=== PATIENT | male | born 1980 | race African-American/Black ===

== ENCOUNTER 2017-01-11 22:47 | Emergency (ER) | payer SELFPAY ==
--- NOTE | 2017-01-17 07:55 | ER ---
ADMIT: 01/11/2017 RM/LOC: [facility] MR#: [id number] [id number] [place], [place] [address] SHERRI HANDLEY [address] [address] Emergency Room Report SEX: M AGE: 36 : 1980 DATE: 01/11/2017 CHIEF COMPLAINT: High blood pressure and blood in urine. HISTORY OF PRESENT ILLNESS: The patient is a 36-year-old male, who apparently has had a diagnosis of hypertension in the past and was on atenolol before but has not been taking any medications for blood pressure for quite some time. He does not have a regular physician in [place]. He denies any chest pain, shortness of breath, abdominal pain, headache, numbness, tingling, weakness in any extremity. He states that the main reason he is here is he had a little bit of blood in his urine a couple of days ago and he felt his blood pressure was probably high even though he did not check it. PAST MEDICAL HISTORY: Hypertension. MEDICATIONS: None. ALLERGIES: NONE. SOCIAL HISTORY: Denies drug or alcohol use. PHYSICAL EXAMINATION: VITAL SIGNS: Blood pressure is 242/152, heart rate 83, respirations 18, temp 98.8, sats 96% on room air. See T-sheet for remainder of physical exam. LABORATORY DATA: Chemistries show a potassium of 3.2, BUN of 28, and creatinine of 2.7. Urinalysis shows 2+ blood, 3+ protein. No signs of infection. CBC shows a white count of 12.6 and platelets of 119, otherwise unremarkable. EMERGENCY DEPARTMENT COURSE: The patient really had no symptoms when I examined the patient in the Emergency Department. He was given clonidine 0.1 mg p.o. and his blood pressure improved to 180/120. They decided also start the patient on amlodipine. He was given his first dose in the Emergency Department. I had a discussion with the patient about my concern of his uncontrolled blood pressure and with likely some kidney damage and renal insufficiency secondary to his high blood pressure. I told him I plan on ADMIT: 01/11/2017 RM/LOC: [facility] MR#: [id number] [address] [address] SHERRI HANDLEY [address] [place] [address] Emergency Room Report SEX: M AGE: 36 : 1980 starting him on an antihypertensive medication here which is to be taken daily and then he needs to follow up early next week with Dr. Roger's office to see how his kidney function is. He is told he should drink plenty of water, and if he has any other concerning symptoms, he can return to our Emergency Department before that. The patient will be placed on amlodipine 5 mg p.o. daily with instructions to call Dr. Roger's office and follow up early next week. DIAGNOSES: 1. Hypertensive urgency. 2. Renal insufficiency. 3. Hypokalemia. Renny Núñez MD/ leninl JOB #: [id number] CC: Renny Núñez MD, Attending Physician Davy Roger MD, Family Physician
[2017-01-25] MEDS ORDERED: APRESOLINE DPS100 MG PO (13:29)
[2017-01-25] MEDS ORDERED: NORVASC DPS10 MG PO (13:29)
[2017-01-25] MEDS ORDERED: CATAPRES-DPS0.2 MG PO (13:29)
[2017-01-25] MEDS ORDERED: LIPITOR DPS10 MG PO (13:30)
[2017-01-25] MEDS ORDERED: CARVEDILOL25 MG PO (13:30)
[2017-01-25] MEDS ORDERED: HYDRODIURIL-DPS50 MG PO (13:30)
[2017-01-25] MEDS ORDERED: [UNRECOGNIZED DRUG - OTHER] PO (13:31)
== END 2017-01-12 03:10 | disposition home or self-care (01) ==
LOC: ER 22:47
DX: I16.0 Hypertensive urgency (principal); N28.9 Disorder of kidney and ureter, unspecified; E87.6 Hypokalemia

== ENCOUNTER 2017-01-18 23:11 | Inpatient (IN) | payer SELFPAY ==
[~2017-01-18] VITALS: Ht 189.2 cm; Wt 140.7 kg
--- NOTE | ~2017-01-18 | ECH ---
Transthoracic Echocardiography Report (TTE) Demographics Patient Name SHERRI HANDLEY Date of Study 01/19/2017 Patient Number [id number] Visit Number [id number] Date of 1980 Room Number 426 Accession Number [id number] Gender Male Age 36 year(s) Referring Karime Desir MD Veterinary Milk Specialist Shannan Carballo [facility] Physician Luis Jefferson Physician Interpreting Karime Desir MD Graphics Coordinator Physician Supervising Ordering Physician Luis Jefferson MD/P Nurse Stress Financial Sales Advisor Conclusions Summary Technically adequate exam. The estimated left ventricular ejection fraction is 60-65%. Severe left ventricular hypertrophy. Diastolic assessment reveals Grade I diastolic dysfunction. There is mild aortic regurgitation by color Doppler. Mild mitral regurgitation by color Doppler. Procedure Type of Study TTE procedure:Echo Complete SF. Procedure Date Date: 01/19/2017 Start: 10:07 AM Technical Quality: Fair due to body habitus. Indications:Hypertension. Appropriate Use Criteria: 9 Height: 75 inches Weight: 308 pounds BSA: 2.64 m Rhythm: Within normal limits HR: 65 bpm BP: 159/103 mmHg M-Mode/2D Measurements LV Diastolic Dimension: 5.24 cm LV Systolic Dimension: 3.09 cm LV Septum Diastolic: 2.3 cm LV PW Diastolic: 1.97 cm AO Root Dimension: 3.13 cm Cardiac Output: 4.48 l/min LA Dimension: 4.14 cm Cardiac Index: 1.7 l/min*m RV Diastolic Dimension: 2.75 cm LA volume index: 30 ml/m LVOT: 2.5 cm LVOT VTI: 14.05 cm RV Base: 4 cm LV Stroke volume: 68.93 ml RV Mid: 2.8 cm LV Stroke volume index: 26.11 ml/m RV Length: 7.4 cm TAPSE: 2.4 cm Doppler Measurements AV Peak Velocity: 1.37 m/s MV Peak E-Wave: 0.59 m/s AV Peak Gradient: 7.51 mmHg MV Peak A-Wave: 0.61 m/s AV Mean Gradient: 4.45 mmHg MV E/A Ratio: 0.97 LVOT Peak Velocity: 0.89 m/s MV P1/2t: 89.7 msec AV Area (Continuity):2.8 cm MV Deceleration Time: 319.1 msec MV Area (PHT): 2.45 cm PV Peak Velocity: 1 m/s PV Peak Gradient: 3.98 mmHg RA Area: 20.93 cm Findings Left Ventricle The left ventricle is normal in size . Severe left ventricular hypertrophy. Diastolic assessment reveals Grade I diastolic dysfunction. Right Ventricle Normal right ventricle structure and function. Left Atrium Normal left atrial size. Right Atrium The right atrium is mildly dilated. Mitral Valve Normal mitral valve structure and function. Mild mitral regurgitation by color Doppler. Aortic Valve Normal aortic valve structure and function. There is mild aortic regurgitation by color Doppler. Tricuspid Valve Normal tricuspid valve structure and function. Pulmonic Valve Normal pulmonic valve structure and function. Pericardial Effusion No evidence of pericardial effusion. Miscellaneous Visualized portions of the aortic root and ascending aorta appear normal in size. Pleural Effusion No evidence of pleural effusion. Contractility Score LV regional wall motion:(0-Non visualized 1-Normal 2-Hypokinesis 3-Akinesis 4-Dyskinesis 5-Aneurysm) Signature
--- NOTE | 2017-01-19 19:22 | ER ---
ADMIT: 01/19/2017 RM/LOC: 426 [facility] MR#: [id number] [address] [place], [place] [address] SHERRI HANDLEY [address] [address] Emergency Room Report SEX: M AGE: 36 : 1980 DATE: 01/18/2017 HISTORY OF PRESENT ILLNESS: The patient is a 36-year-old male with a past medical history of hypertension, who has already been on atenolol, but recently did not take any medications, last week the patient came to ER with chief complaint of blood in the urine and they also noticed that the patient has high blood pressure, and the patient was discharged home with amlodipine, the patient came today in the ER with chief complaint of left arm pain without any chest pain or shortness of breath, the pain started 3 hours ago and is dull, the patient denies any diaphoresis. The patient denies any abdominal pain. In the ER, the patient had systolic blood pressure of 240s with diastolic blood pressure of 125, EKG showed inverted T on the lateral leads and also biphasic T in the anteroseptal leads. Cardiac enzyme was mildly elevated to 0.043. Chest x-ray was noncontributory. In the ER, the patient received nitroglycerin sublingual, which did not change the pain in the left upper extremity and also did not change the blood pressure that much. The patient received 2 doses of clonidine 2.1 mg, which decreased the blood pressure systolic to 170s. The rest of the lab work was noncontributory. The patient denies any drug use. The patient also has elevated creatinine level chronically to 2.8 with a BUN of 21. PHYSICAL EXAMINATION: Preliminary physical examination. HEAD AND NECK: Noncontributory. There is no bruit on the neck, and there are no murmurs on the neck. Trachea is midline. LUNGS: Clear bilaterally, normal. HEART: Sounds without any murmur or gallops. ABDOMEN: Soft, without any pulsatile mass. NEUROLOGIC: Motor and sensory and the rest of the neural exam was grossly normal. The rest of physical exam is grossly normal. The patient was admitted to the Family Medicine for further followups and treatments of left arm pain, rule out acute coronary syndrome, hypertensive urgency versus emergency, chronic kidney disease. Deepak Cisneros MD/ dipti JOB #: [id number] CC: Ronny Smith MD, Attending Physician Ronny Smith MD, Family Physician
[2017-01-25] MEDS ORDERED: APRESOLINE DPS100 MG PO (13:29)
[2017-01-25] MEDS ORDERED: NORVASC DPS10 MG PO (13:29)
[2017-01-25] MEDS ORDERED: CATAPRES-DPS0.2 MG PO (13:29)
[2017-01-25] MEDS ORDERED: LIPITOR DPS10 MG PO (13:30)
[2017-01-25] MEDS ORDERED: HYDRODIURIL-DPS50 MG PO (13:30)
[2017-01-25] MEDS ORDERED: CARVEDILOL25 MG PO (13:30)
[2017-01-25] MEDS ORDERED: [UNRECOGNIZED DRUG - OTHER] PO (13:31)
--- NOTE | 2017-01-29 19:48 | HP ---
ADMIT: 01/19/2017 RM/LOC: 426 [facility] MR#: [id number] [address] [place], [place] [address] SHERRI HANDLEY [address] [address] History and Physical SEX: M AGE: 36 : 1980 DATE OF SERVICE: CHIEF COMPLAINT: Left arm pain. REASON FOR ADMISSION: Hypertension urgency and acute renal failure. HISTORY OF PRESENT ILLNESS: The patient is a pleasant male, who presented to the ER with left arm pain starting yesterday. He described the pain as dull in nature, it had been lasting all day. He also states he has had some blurry vision over the past month but denies headaches, chest pain, shortness of breath, or palpitations. He was recently diagnosed with hypertension 1 week ago in the ER, and was started on amlodipine. Patient has been taking his amlodipine daily. He states he is, however, supposed to have followup appointment and has not yet been to that. The patient denies any other symptoms. When he got in the ER, patient was noted to have a blood pressure of 244/160, pulse is 85, respiratory rate 18, temp is 97.4, so the patient was given clonidine which did decrease his blood pressure. Other workup in the ER showed a slightly elevated white blood cell count of 12.2, hemoglobin slightly low at 13.4, and platelets are 191. CMP; sodium is 138, potassium is low at 3.2, chloride was 98, CO2 is 30, BUN is 21, creatinine 2.8, glucose is 101 and 9.5 was his calcium. He also had an EKG in the ER that showed sinus rhythm, but did have some possible left atrial enlargement and some LVH, also meeting LVH criteria. There is also some T-wave inversion in the lateral leads. The patient's cardiac enzymes, troponin was done and it was slightly elevated at 0.043. So, the patient was admitted for hypertension urgency, we are trending his EKGs and his cardiac enzymes. Upon my read, does appear to still have some T-wave inversion in V3 through V6 and is still meeting criteria for LVH but is sinus rhythm, otherwise. PAST MEDICAL HISTORY: Includes hypertension, he says he has been healthy otherwise. ALLERGIES: NONE. FAMILY HISTORY: Hypertension. MEDICATIONS: Just the amlodipine. SOCIAL HISTORY: He is a father and does not smoke. Denies any drug use. He does drink alcohol 2-3 times a month, 1-2 drinks when he does drink. SURGICAL HISTORY: None. PHYSICAL EXAMINATION: VITAL SIGNS: At time of my exam blood pressure has improved slightly to 149/99, temp is 96.9, pulse is 65, respiratory rate 14, and he is 95% on room air. GENERAL: No acute distress. He is alert and oriented x3. Very pleasant, but he does admit he is fairly tired and has not gotten much sleep over the past night. ADMIT: 01/19/2017 RM/LOC: 426 [facility] MR#: [id number] [address] [address] [place] [address] History and Physical SEX: M AGE: 36 : 1980 HEENT: Normocephalic, atraumatic. Moist mucous membranes. Extraocular muscles are intact. NECK: Supple. Nontender. HEART: Regular rate and rhythm. No murmur. LUNGS: Clear to auscultation bilaterally. Normal effort. No wheezing was appreciated. ABDOMEN: Soft, positive bowel sounds. Nontender. The patient is overweight, however. EXTREMITIES: Pulses are 2+ bilaterally in his radial pulses as well as his dorsalis pedis. No edema is appreciated in his lower extremities. He has normal range of motion of musculoskeletal. Pain does not really radiate from that left. Biceps area is nontender. NEURO: Cranial nerves II through XII are grossly intact. ASSESSMENT/PLAN: 1. Hypertension urgency. We will continue blood pressure monitoring. We will continue his amlodipine. 2. Acute renal failure. His creatinine is 3.8, we will recheck BMP later this afternoon and give patient IV fluids. 3. Elevated troponin, we will trend cardiac enzymes and EKGs at this time and do some further monitoring of that. The patient is otherwise stable at this time. Florence Waldron MD Resident / Ronny Smith MD / modl JOB #: [id number] CC: Ronny Smith, Attending Physician Ronny Smith, Family Physician
--- NOTE | 2017-01-30 10:43 | CO ---
ADMIT: 01/19/2017 RM/LOC: 426 [facility] MR#: [id number] [address] [place], [place] [address] SHERRI HANDLEY [address] [address] Consultation SEX: M AGE: 36 : 1980 DATE OF CONSULTATION: 01/21/2017 ATTENDING PHYSICIAN: Ronny Smith CONSULTING PHYSICIAN: Antonette Fischer MD REASON FOR CONSULTATION: Severe hypertension. HISTORY OF PRESENT ILLNESS: The patient is a pleasant 36-year-old male, who was admitted to the hospital 2 days ago with hypertensive urgency. He was noted to have a serum creatinine of 2.8 on admission. His blood pressure is now better on multiple antihypertensive agents, but his creatinine has been in the mid 2 range. He had some left arm pain as well as blurry vision upon admission and these complaints have resolved. He states that he was put on a medication atenolol 5 years ago by a physician in [place], but he has not been taking his medications. I reviewed his diet with him and he has a sodium rich diet. He is not very active physically either. He denies any ongoing urinary complaints, although he notes that he had an episode of hematuria not too long ago. Denies any ongoing chest pain or dyspnea. Denies any dizziness or lightheadedness. REVIEW OF SYSTEMS: A complete review of systems is negative in detail except as mentioned in history of present illness above. PAST MEDICAL HISTORY: Hypertension. ALLERGIES: NO KNOWN DRUG ALLERGIES. MEDICATIONS: He was not taking any medications prior to admission. His inpatient medications were reviewed in the chart. FAMILY HISTORY: Hypertension and heart disease runs in his family. Denies any history of chronic kidney disease or renal replacement therapy. SOCIAL HISTORY: He lives here in [place] and has lived here for about last 4 or 5 years. He works as a cook at [employer]. He does not smoke. He drinks alcohol occasionally. Denies any recreational drug use. PHYSICAL EXAMINATION: VITAL SIGNS: Temperature 97.4 Fahrenheit, pulse 70, and blood pressure 150/93. GENERAL: He is comfortable. HEENT: Head is nontraumatic and normocephalic. Extraocular movements are intact. CHEST: Clear to auscultation. CVS: Regular. Normal S1 and S2. No rubs, murmurs, or gallops. ABDOMEN: Soft. EXTREMITIES: No edema. NEUROLOGIC: Alert, awake, and oriented x3. PSYCHIATRIC: Affect and memory within normal limits. ADMIT: 01/19/2017 RM/LOC: 426 [facility] MR#: [id number] [id number] [place], [place] [id number] [address] [place] [address] Consultation SEX: M AGE: 36 : 1980 MUSCULOSKELETAL: Major joints within normal. Range of motion within normal limits. LABORATORY DATA: Reviewed. Trend of serum creatinine outlined in the HPI above. His sodium was 139, potassium 3.4, and CO2 25. His hemoglobin was 12.5. He had an echocardiogram two days ago that showed left ventricular EF of 60% to 65% with severe LVH. His urinalysis showed 3+ protein, 2+ blood and negative leukocyte esterase. ASSESSMENT AND PLAN: 1. Severe hypertension. 2. Chronic kidney disease stage 3/4. 3. He has end-organ damage from hypertension, which has manifested in the form of left ventricular hypertrophy as well as proteinuric chronic kidney disease. 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 I will stop his normal saline for the time being. I have counseled him on limiting his dietary sodium intake, regular aerobic exercise and weight loss as nonpharmacologic measures to control blood pressure. I have noted Cardiology orders for spironolactone and I will substitute that with amiloride instead in case we need to pursue secondary hypertension workup with an angiotensin levels. Thank you for this consultation. Please do not hesitate to contact with any questions. Antonette Fischer MD/ dipti JOB #: [id number] CC: Ronny Smith, Attending Physician Ronny Smith, Family Physician
--- NOTE | 2017-01-31 15:33 | CO ---
ADMIT: 01/19/2017 RM/LOC: 426 [facility] [place] MR#: [id number] [address] [place], [place] [address] SHERRI HANDLEY [address] [address] Consultation SEX: M AGE: 36 : 1980 DATE OF CONSULTATION: 01/19/2017 ATTENDING PHYSICIAN: Ronny Smith CONSULTING PHYSICIAN: Janet Schaffer MD REASON FOR CONSULT: Hypertension, elevated troponin. Ximena Palm RN, scribing for Dr. Thang Schaffer. HISTORY OF PRESENT ILLNESS: Sherri is a pleasant 36-year-old gentleman, I have been asked in Cardiology consultation by Dr. Ronny Smith for mildly elevated troponin with hypertension. Sherri has no prior history of coronary artery disease. He had a maternal grandmother who from myocardial infarction at a young age. He is unaware of his father's family history. His mom at the age of 34 from HIV. He has history of high blood pressure and hyperlipidemia. He presented to [facility] emergency room a week ago with hematuria, however, he was noted to have blood pressure over 250 systolic at that time per their notes. He was started on Norvasc 5 mg and was told to follow up with Family Practice, which he had not been able to do as of yet. 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 He stated that yesterday he was having left arm pain that he describes as tension and bruising type feeling. He had never had this before. He denies any chest pain. He does note over the last few weeks he has had increasing shortness of breath. He denies any orthopnea or peripheral, edema but does have symptoms that sound like sleep apnea. He came to the emergency room, initial troponin was very mildly elevated at 0.04, however, his renal function was abnormal with a creatinine of 2.8, and it sounds like his blood pressures were over 200 at that time. He was given IV hydralazine, and placed on HydroDIURIL with Norvasc at 30 mg which have not been given yet, I believe, but the IV medication has dropped his blood pressure down to 159/103. He reports his symptoms have improved. His second set of cardiac troponin is negative. CK and MB are elevated with a CK of 1125, MB of 4.3. His potassium was a little low and being replaced by primary at 3.2. Currently, he denies any discomfort. PAST MEDICAL HISTORY: 1. Hypertension. 2. Hyperlipidemia. 3. Recent hematuria. ALLERGIES: NO KNOWN MEDICATION ALLERGIES. MEDICATIONS: Currently ordered medications include: 1. Aspirin 162 daily. 2. HydroDIURIL 25 daily. 3. Norvasc 30 mg daily. 4. Potassium chloride 10 mEq IV q.8 hours. FAMILY HISTORY: Father side, unknown. Mom of HIV at 34. Maternal ADMIT: 01/19/2017 RM/LOC: 426 [facility] MR#: [id number] [address] [place], [place] [id number] SHERRI HANDLEY [address] [place] [address] Consultation SEX: M AGE: 36 : 1980 grandmother in her 40s of a myocardial infarction. SOCIAL HISTORY: Sherri is from his . He is a cook at [employer]. He has a 6-year-old daughter. He stated it one week ago since his ER visit, he cut sodium and processed foods out of his diet. He quit drinking pop. He is drinking water and has changed from whole milk to skim milk. He denies any caffeine currently. He states that he has occasional alcohol use, maybe twice a month. No tobacco history. No drug use. REVIEW OF SYSTEMS: GENERAL: Increased fatigue over the last week or so. No recent fever, chills, or sweats. He is unsure of weight changes as he does not weigh himself. His current weight on admit of 308. EYES: Denies double vision, blurred vision, cataracts, or glaucoma. ENT: Denies hearing loss or problems with nose, mouth or throat. PULMONARY: Denies cough, sputum production, asthma, emphysema or bronchitis. Denies snoring loudly, wakefulness at night, or fatigue upon awakening. GASTROINTESTINAL: Denies heartburn or difficulty swallowing. No change in bowel habits. Denies dark or bloody stools. No history of ulcers, hiatal hernia, or gallbladder or liver disease GENITOURINARY: Hematuria one week ago, this has resolved. He is having a renal ultrasound today for his high blood pressure. MUSCULOSKELETAL: Denies history of arthritis or gout. Denies muscle or joint pains. ENDOCRINE: Denies history of thyroid dysfunction or diabetes. HEMATOLOGIC: Denies history of anemia, easy bruising, or cancer. NEUROLOGIC: Denies chronic headaches, dizziness, syncope, stroke, seizures or numbness or tingling. PSYCHIATRIC: Denies history of mental illness or feelings of depression. PHYSICAL EXAMINATION: VITAL SIGNS: Blood pressure 159/103, heart rate 60, respirations 16, temperature 97.1, oxygenation 99% on room air. SKIN: [place], warm and dry. EYES: Sclerae clear. No xanthelasmas. ENT: Oral mucosa is pink and moist. No jugular venous distention or carotid bruits. CHEST: Respirations are even and unlabored. Lungs are clear to auscultation. HEART: Regular rate and rhythm. Normal S1, S2. No murmurs, rubs or gallops. ABDOMEN: Soft and nontender. MUSCULOSKELETAL: Gait is normal. EXTREMITIES: Peripheral pulses palpable. No clubbing, cyanosis or edema. PSYCHIATRIC: Alert and oriented. Mood and affect are appropriate. DIAGNOSTIC DATA: Sodium 138, potassium 3.2, BUN 21, creatinine 2.8, glucose 101, INR 1.05, total cholesterol 233, triglycerides 99, HDL 58, LDL 155, CK 1125, MB 4.3, troponin on second set 0.029, first is 0.043. White blood cell count 12.2, hemoglobin 13.4, hematocrit 40.6, platelets 191. Hemoglobin A1c 5.7. ADMIT: 01/19/2017 RM/LOC: 426 [facility] [place] MR#: [id number] [address] [facility] [address] [place], [place] [address] SHERRI HANDLEY [address] [address] Consultation SEX: M AGE: 36 : 1980 ASSESSMENT AND PLAN: 1. Hypertension and hypertensive urgency. 2. Renal insufficiency. 3. Abnormal/indeterminate troponin. I will check echocardiogram for wall motion abnormalities, valvular abnormalities, or decreased ejection fraction. He states that he was taking 5 mg of Norvasc at home. I am going to change his Norvasc to 10 mg and add Coreg 3.125 p.o. b.i.d. for blood pressure. I will hold his aspirin with elevated creatinine. I suspect troponin is elevated mildly secondary to high blood pressure and chronic renal insufficiency. If his echo is normal, then no need for stress at this point. Thank you for the consultation. I have read and agree with the documentation that has been completed regarding this visit. By signing this record, I attest that the documentation was completed in my physical presence and is an accurate record of the encounter. Ximena Palm RN / C. Thang Schaffer MD / dipti JOB #: [id number] CC: Ronny Smith, Attending Physician Ronny Smith, Family Physician
--- NOTE | 2017-02-12 08:10 | DS ---
ADMIT: 01/23/2017 RM/LOC: [address] [facility] MR#: [id number] [id number] [place], [place] [address] SHERRI HANDLEY [address] [address] General Discharge Summary SEX: M AGE: 36 : 1980 ADMISSION DATE: 01/23/2017 DISCHARGE DATE: 01/24/2017 CONSULTS: Cardiology and Nephrology. FINAL DIAGNOSES: 1. Hypertension urgency. 2. Acute renal failure. 3. Elevated troponins. HISTORY OF PRESENT ILLNESS: The patient is a 36-year-old -French male, presented to the ER with left arm pain starting the day previously. He had also had some blurry vision in the last month but he denied headaches, chest pain, shortness of breath, or palpitations. He was recently diagnosed with hypertension in the ER. About the last week, he was started on the medication. He said he has been taking his medication daily, but has not yet followed up with anyone to help manage his high blood pressure. When he came into the ER, the patient was noted to have a blood pressure of 244/160. The patient was given clonidine, which did decrease his blood pressure. He did have an elevated troponin at that time at 0.043. The patient also was noted to have a low potassium of 3.2, an elevated creatinine of 2.8. The patient was admitted for hypertension urgency, kidney failure, and elevated troponin. HOSPITAL COURSE: 1. Hypertension urgency. The patient was started on his amlodipine and clonidine. The patient's blood pressure had improved with the clonidine in the ER. The patient was also started on IV hydralazine 10 mg q.2 hours as needed for systolics over 180. Cardiology was consulted and an echo was performed. Renal ultrasound was also done and the patient was started on HCTZ. HCTZ was 25 mg p.o. and he was placed on the low-salt diet. Cardiology started the patient on Norvasc 10 mg daily and Coreg 3.125 mg b.i.d. Echo, the patient was also started on IV Lopressor. Daily BMPs were done. Throughout the stay, Coreg was increased to 25 mg BID, hydralazine was added at q.i.d., Lopressor 5 mg IV as needed as the patient still continued to have elevated blood pressure.Other medications that were added include clonidine 0.1 mg t.i.d. and Aldactone 25 mg p.o. daily. The following day, his blood pressure had greatly improved. Echo showed some LVH. The EF was normal. Cardiology agreed with the blood pressure medications and set up an appointment for the patient to follow up in one month. 2. Elevated creatinine. Patient had elevated creatine at time of admission. On day two, the patient's creatinine had not improved, so Nephrology was consulted. They felt that this ARF was likely due to severe hypertension but could not rule out a history of CRF. Also, urine protein and creatinine clearance was done as well. The patient's blood pressure did spike on the third day of hospitalization. Dr. Fischer discontinued the Aldactone as it was probably not best for the patient's kidney failure at this time. He added amiloride 5 mg daily. On day 4, ADMIT: 01/23/2017 RM/LOC: [address] [facility] MR#: [id number] [address] [place] [id number] [address]ERRI [address] [place] [address] General Discharge Summary SEX: M AGE: 36 : 1980 the patient's hydralazine was increased to 50 mg p.o. q.i.d., which did provide some improvement. The patient's creatinine continued to remain the same in that 2.7 to 2.8 range. A 24-hour urine was also done for catecholamines and metanephrines. Plasma metanepinephrines was also done. The patient still continued to have elevated blood pressure even with Cardiology and Nephrology involvement. Creatinine had also bumped to 3.1. Again, this is day 4. The patient's creatinine clearance was 3.5 mL/minute on the 24-hour urine. Ultimately it was decided the patient had chronic kidney disease, stage 3 or 4, the patient was given lifestyle changes like sodium restrictions, weight management, and other helpful ways to lose weight and to stay active. The patient is to follow up with nephrology in 2 to 4 weeks as well as follow up with Cardiology as an outpatient. 3. Elevated troponin is due to hypertension urgency and strain. No acute signs of RI. MEDICATIONS AT THE TIME OF DISCHARGE: Include: 1. Apresoline 100 mg p.o. b.i.d. 2. Catapres 0.2 mg b.i.d. 3. Coreg 25 mg b.i.d. 4. HydroDIURIL 50 mg daily. 5. Lipitor 10 mg daily. 6. Midamor 5 mg daily. 7. Norvasc 10 mg daily. Discharge instructions: The patient was also to follow up with Dr. Waldron in 1 to 2 weeks. Again, no procedures were done during this hospitalization. I suggested that the patient get an outpatient sleep study as well. Florence Waldron MD Resident / Ronny Smith MD / leninl JOB #: [id number] CC: Ronny Smith MD, Attending Physician Ronny Smith MD, Family Physician
== END 2017-01-24 15:30 | disposition home or self-care (01) | DRG 305 ==
LOC: ER 23:11 → 4PCU 01-19 04:11
PROVIDERS: ADMIT Family Medicine
DX: I16.0 Hypertensive urgency (principal); N17.9 Acute kidney failure, unspecified; N18.3 Chronic kidney disease, stage 3 (moderate); M79.602 Pain in left arm; G47.33 Obstructive sleep apnea (adult) (pediatric); E78.5 Hyperlipidemia, unspecified; E66.9 Obesity, unspecified; I12.9 Hypertensive chronic kidney disease with stage 1 through stage 4 chronic kidney disease, or unspecified chronic kidney disease; R79.89 Other specified abnormal findings of blood chemistry; Z82.49 Family history of ischemic heart disease and other diseases of the circulatory system; Z68.39 Body mass index [BMI] 39.0-39.9, adult

== ENCOUNTER 2017-01-26 14:40 | Emergency (ER) | payer SELFPAY ==
[~2017-01-26 14:40] MED LIST: APRESOLINE DPS100 MG PO; CARVEDILOL25 MG PO; CATAPRES-DPS0.2 MG PO; HYDRODIURIL-DPS50 MG PO; LIPITOR DPS10 MG PO; NORVASC DPS10 MG PO; [UNRECOGNIZED DRUG - OTHER] PO
--- NOTE | 2017-02-03 17:54 | ER ---
ADMIT: 01/26/2017 RM/LOC: ER [facility] MR#: [id number] [id number] [place], [place] [address] SHERRI HANDLEY [address] [address] Emergency Room Report SEX: M AGE: 36 : 1980 DATE: 01/26/2017 ADDENDUM: This patient comes into the ER because he is having problems with his vision. He has had it over the last 2 months, but it became worse today. His vision will become suddenly blurry. He was seen in the ER earlier this week for a hypertensive emergency. It was then determined that his blood pressure was high causing him to have renal insufficiency. He currently is on 3 different medications for hypertension, and he has an appointment to see Dr. Fischer, and Dr. Fischer is following him with his elevated creatinine today, it was 3.7. Looking at his last one before he was discharged, it was 3.1. I did speak with Dr. Smith, and we did discuss the vision changes. At this time, his vision issues he was having as he is not having at this particular moment and his blood pressure was 160/84. We will discharge him. He is to follow up with Dr. Hoyt, income auditor. DIAGNOSES: 1. Vision change. 2. Hypertension. 3. Kidney insufficiency. Please see my T-sheet. CHAD Mckee / Edin Vasquez MD / modl JOB #: [id number] CC: Edin Vasquez MD, Attending Physician Matthew Bhandari MD, Family Physician
== END 2017-01-26 17:56 | disposition home or self-care (01) ==
LOC: ER 14:40
DX: H57.8 Other specified disorders of eye and adnexa (principal); I10 Essential (primary) hypertension; N28.9 Disorder of kidney and ureter, unspecified; Z79.899 Other long term (current) drug therapy

== ENCOUNTER 2017-01-27 18:16 | Emergency (ER) | payer SELFPAY ==
--- NOTE | 2017-02-03 17:54 | ER ---
ADMIT: 01/27/2017 RM/LOC: [place] [facility] [place]#: [id number] [address] [facility] [id number] [place], [place] [address] SHERRI HANDLEY [address] [address] Emergency Room Report SEX: M AGE: 36 : 1980 DATE: 01/27/2017 ADDENDUM: A 36-year-old black male, coming in just with a little arm discomfort. His EKG was negative. His blood pressure is controlled. He does not get pain with exertion or moving around. He says actually it getting better, says he just notices it sometimes when he sits down. At this time, I do not find anything acute. I do not think this needs to be worked up anymore. He does need to follow up with Dr. Ronny Smith and continue medications as before because his pressure is now controlled. Evidently, he has stopped taking these for a bit and his pressure was all over and he was in the ED many times until this could be control. CONDITION ON DISCHARGE: Good. Edin Vasquez MD/ dipti JOB #: [id number] CC: Edin Vasquez MD, Attending Physician Ronny Smith MD, Family Physician
== END 2017-01-27 20:25 | disposition home or self-care (01) ==
LOC: ER 18:16
DX: I10 Essential (primary) hypertension (principal); Z79.899 Other long term (current) drug therapy

== ENCOUNTER 2017-01-30 12:05 | Emergency (ER) | payer SELFPAY ==
--- NOTE | 2017-01-31 15:15 | NUR ---
Pt triggered as high ED user. Attempted to contact pt. No answer, voice mail is not set up.
--- NOTE | 2017-01-31 15:21 | NUR ---
Pt called back. States he was able to fill his medications that were prescribed to him upon dc. Pt states he has future doctor appts scheduled. SWS mailed pt information on [facility] and [facility].
--- NOTE | 2017-02-18 15:51 | ER ---
ADMIT: 01/30/2017 RM/LOC: ER [facility] MR#: [id number] [address] [place], [place] [address] SHERRI HANDLEY [address] [address] Emergency Room Report SEX: M AGE: 36 : 1980 DATE: 01/30/2017 ADDENDUM: This patient comes into the ER because he is having dizziness and he is very tired. He was recently admitted two weeks ago for having high blood pressure. It was found that he has had some liver issues and his creatinine has been high. He was seen in the ER this weekend with complaints of changes in his vision, which has been happening on and off for the last 2 months. Today, he comes in because he is just dizzy and tired and has no energy. He is taking 6 new medications upon his discharge from the hospital. His hemoglobin was 12. His BUN 46, and his creatinine was 4.0 here in the emergency room today. When he was here this weekend, which was about two or three days ago, his creatinine was 3.7. I did speak with Dr. Arellano the ER physician, and then spoke with Dr. Fischer, who saw him while he was in the hospital and he has an appointment to follow up with him on February 11. Per Dr. Fischer, we will discontinue his Norvasc, but continue with all his regular medications and he is to keep his appointment. DIAGNOSES: 1. Hypertension. 2. Kidney disease. CHAD Mckee / Rashid Arellano MD / modl JOB #: [id number] CC: Rashid Arellano MD, Attending Physician Antonette Fischer MD, Family Physician
== END 2017-01-30 15:07 | disposition home or self-care (01) ==
LOC: ER 12:05
DX: I10 Essential (primary) hypertension (principal); N28.9 Disorder of kidney and ureter, unspecified; E78.5 Hyperlipidemia, unspecified; Z79.899 Other long term (current) drug therapy

== ENCOUNTER → 2017-02-06 | Outpatient (CLI) | payer SELFPAY | END | disposition home or self-care (01) | LOC: PTH.S 13:30 | DX: N18.9 Chronic kidney disease, unspecified (principal) ==